=== PATIENT | male | born 1985 | race African-American/Black ===

== ENCOUNTER 2016-08-24 15:29 | Observation (INO) | payer OTHER, BC ==
[2016-08-24] MEDS ORDERED: Sodium Chloride 0.9% 10 ML Syringe FLUSH PRN (16:46)
--- NOTE | 2016-08-24 16:55 | EDM.PDOC ---
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, no cramps 2d ago, did little lifting then yesterday and today he was welding in a tight space and doing more lifting, had cramping in his hands, biceps and LEs with exertion, had cramping in bed in the R thigh last night, shower last night did not help, at pizza slice x 2 and chicken pieces x 2 for lunch, food did not help, drank 4 bottles water and 1 bottle gatorade this AM and had Sprite for lunch sweat "pouring off of me" at work today, his hand bandana was drenched from [place] no previous h/o cramps or muscle problems PMH neg meds none all NKA SH 1 ppd, no THC, occasional beer, no street drugs - Related Data Allergies Allergy/AdvReac Type Severity Reaction Status Date / Time No Known Allergies Allergy Verified 08/24/16 16:43 Home Meds: Home Meds NK [No Known Home Meds] 08/24/16 [History] ED ROS GENERAL - Review of Systems Review Of Systems: See Below Constitutional: Reports: No Symptoms HEENT: Reports: No Symptoms Respiratory: Reports: No Symptoms Cardiovascular: Reports: No Symptoms Endocrine: Reports: No Symptoms GI/Abdominal: Reports: No Symptoms : Reports: No Symptoms Musculoskeletal: Reports: Arm Pain, Hand Pain, Leg Pain, Muscle Stiffness, Other (muscle felt hard when it cramped) Skin: Reports: No Symptoms Neurological: Reports: No Symptoms Psychiatric: Reports: No Symptoms Hematologic/Lymphatic: Reports: No Symptoms Immunologic: Reports: No Symptoms ED EXAM, GENERAL - Physical Exam Exam: See Below Exam Limited By: No Limitations General Appearance: Alert, WD/WN, No Apparent Distress, Other (muscular, skin dry, no diaphoresis) Ears: Normal External Exam Nose: Normal Inspection, Normal Mucosa, No Blood Throat/Mouth: Normal Inspection, Normal Lips, Normal Teeth, Normal Gums, Normal Oropharynx, Normal Voice, No Airway Compromise Head: Atraumatic, Normocephalic Neck: Normal Inspection, Supple, Non-Tender, Full Range of Motion Respiratory/Chest: No Respiratory Distress, Lungs Clear, Normal Breath Sounds, No Accessory Muscle Use, Chest Non-Tender Cardiovascular: Normal Peripheral Pulses, No Edema, No Gallop, No Rub, Other ( regular, mild tachy, 2/6 RHONDA at LSB, quiet precordium) GI/Abdominal: Normal Bowel Sounds, Soft, Non-Tender, No Organomegaly, No Distention Back Exam: Normal Inspection Extremities: Normal Inspection, Normal Range of Motion, Non-Tender, No Pedal Edema, Other (no point tender, no spasm) Neurological: Alert, Oriented, CN II-XII Intact, Normal Cognition, No Motor/ Sensory Deficits Psychiatric: Normal Affect, Normal Mood Skin Exam: Warm, Dry, Intact, Normal Color, No Rash, Other (no tenting) Lymphatic: No Adenopathy Course - Vital Signs Last Recorded V/S: Last Vital Signs Temp 36.8 C 08/24/16 15:30 Pulse 105 H 08/24/16 15:30 Resp 18 08/24/16 15:30 BP 125/87 08/24/16 15:30 Pulse Ox 98 08/24/16 15:30 - Orders/Labs/Meds Orders: Active Orders 24 hr Category Date Time Status Sodium Chloride 0.9% [Normal Saline] 1,000 ml Med 08/24/16 17:00 Active IV ASDIRECTED Sodium Chloride 0.9% [Normal Saline] 1,000 ml Med 08/24/16 17:00 Active IV ASDIRECTED Sodium Chloride 0.9% [Saline Flush] Med 08/24/16 16:46 Active 10 ml FLUSH ASDIRECTED PRN Saline Lock Insert [OM.PC] Routine Oth 08/24/16 16:46 Ordered Medication Orders Sodium Chloride (Normal Saline) 1,000 mls @ 999 mls/hr IV ASDIRECTED MARGOT Last Admin: 08/24/16 17:13 Dose: 999 mls/hr Sodium Chloride (Normal Saline) 1,000 mls @ 999 mls/hr IV ASDIRECTED MARGOT Last Admin: 08/24/16 18:15 Dose: 999 mls/hr Sodium Chloride (Saline Flush) 10 ml FLUSH ASDIRECTED PRN PRN Reason: Keep Vein Open Last Admin: 08/24/16 17:10 Dose: 10 ml Labs: Laboratory Tests 08/24/16 08/24/16 08/24/16 Range/Units 17:10 17:10 17:10 WBC 8.2 (4.5-12.0) X10-3/uL RBC 6.20 H (4.30-5.75) x10(6)uL Hgb 18.0 H (11.5-15.5) g/dL Hct 54.2 H (30.0-51.3) % MCV 87.6 (80-96) fL MCH 29.0 (27.7-33.6) pg MCHC 33.1 (32.2-35.4) g/dL RDW 13.1 (11.5-15.5) % Plt Count 302 (125-369) X10(3)uL MPV 9.0 (7.4-10.4) fL Neut % (Auto) 64.1 (46-82) % Lymph % (Auto) 22.7 (13-37) % Jay % (Auto) 8.7 (4-12) % Eos % (Auto) 2 (1.0-5.0) % Baso % (Auto) 2 (0-2) % Neut # (Auto) 5.2 (1.6-8.3) # Lymph # (Auto) 1.9 (0.6-5.0) # Jay # (Auto) 0.7 (0.0-1.3) # Eos # (Auto) 0.2 (0.0-0.8) # Baso # (Auto) 0.2 (0.0-0.2) # Sodium 134 L (135-145) mmol/L Potassium 3.6 (3.5-5.3) mmol/L Chloride 96 L (100-110) mmol/L Carbon Dioxide 26 (23-29) mmol/L BUN 26 H (5-20) mg/dL Creatinine 1.6 H (0.6-1.3) mg/dL Est Cr Clr Drug Dosing 71.46 mL/min Estimated GFR (MDRD) > 60 (>60) BUN/Creatinine Ratio 16.3 (9-20) Glucose 96 (80-116) mg/dL Calcium 10.9 H (8.6-10.2) mg/dL Magnesium 2.4 (1.8-2.5) mg/dL Total Bilirubin 0.6 (0.1-1.3) mg/dL AST 76 H (5-27) IU/L ALT 33 H (14-26) IU/L Alkaline Phosphatase 117 H (56-112) IU/L Creatine Kinase 4672 H* (60-160) IU/L C-Reactive Protein < 0.5 (0.0-1.0) mg/dL Total Protein 9.4 H (6.0-8.0) g/dL Albumin 5.7 H (3.5-5.2) g/dL Globulin 3.7 g/dL Albumin/Globulin Ratio 1.5 Urine Color Yellow (YELLOW) Urine Appearance Clear (CLEAR) Urine pH 5.0 (5.0-6.5) Ur Specific [place] 1.025 (1.010-1.025) Urine Protein 30 H (NEGATIVE) mg/dL Urine Glucose (UA) Normal (NEGATIVE) mg/dL Urine Ketones 15 H (NEGATIVE) mg/dL Urine Occult Blood Moderate H (NEGATIVE) Urine Nitrite Negative (NEGATIVE) Urine Bilirubin Small H (NEGATIVE) Urine Urobilinogen 1 H (NEGATIVE) mg/dL Ur Leukocyte Esterase Negative (NEGATIVE) Urine RBC 0-5 (0) Urine WBC 0-5 (0) Ur Squamous Epith Cells Occasional (NS,R,O) Urine Bacteria Few H (NS) Hyaline Casts Moderate H (NS) Meds: Medications Generic Name Dose Route Start Last Admin Trade Name Freq PRN Reason Stop Dose Admin Sodium Chloride 1,000 mls @ 999 mls/hr 08/24/16 17:00 08/24/16 17:13 Normal Saline IV 999 mls/hr ASDIRECTED MARGOT Administration Sodium Chloride 1,000 mls @ 999 mls/hr 08/24/16 17:00 08/24/16 18:15 Normal Saline IV 999 mls/hr ASDIRECTED MARGOT Administration Sodium Chloride 10 ml 08/24/16 16:46 08/24/16 17:10 Saline Flush FLUSH 10 ml ASDIRECTED PRN Administration Keep Vein Open - Re-Assessments/Exams Free Text/Narrative Re-Assessment/Exam: 08/24/16 19:23 pt with acute rhabdo, need to admit for IVF as well as possibility of inc'd CPK prior to correction discussed, pt agrees to admission, suspect combination of physical exertion and heat and insufficient fluid intake all contributed to rhabdo Departure - Departure Time of Disposition: 19:20 Disposition: Admitted As Inpatient 66 Condition: Good Clinical Impression: Rhabdomyolysis, Acute renal failure due to rhabdomyolysis, Elevated LFTs, Heat exhaustion, Muscle spasm - Discharge Information Forms: ED Department Discharge - My Orders Last 24 Hours: My Active Orders 08/24/16 16:46 Sodium Chloride 0.9% [Saline Flush] 10 ml FLUSH ASDIRECTED PRN Saline Lock Insert [OM.PC] Routine 08/24/16 17:00 Sodium Chloride 0.9% [Normal Saline] 1,000 ml IV ASDIRECTED Sodium Chloride 0.9% [Normal Saline] 1,000 ml IV ASDIRECTED - Assessment/Plan Last 24 Hours: My Active Orders 08/24/16 16:46 Sodium Chloride 0.9% [Saline Flush] 10 ml FLUSH ASDIRECTED PRN Saline Lock Insert [OM.PC] Routine 08/24/16 17:00 Sodium Chloride 0.9% [Normal Saline] 1,000 ml IV ASDIRECTED Sodium Chloride 0.9% [Normal Saline] 1,000 ml IV ASDIRECTED
[2016-08-24] MEDS ORDERED: Sodium Chloride 0.9% 1,000 ML IV SCH ×2 (17:00)
[2016-08-24] MEDS ORDERED: Sodium Chloride 0.9% 2,000 ML IV SCH (19:30)
[2016-08-24] MEDS: Sodium Chloride 0.9% 1,000 ML IV SCH (21:37)
[2016-08-25] MEDS: Sodium Chloride 0.9% 1,000 ML IV SCH ×2 (01:37→05:39)
--- NOTE | 2016-08-25 07:58 | PCM.HP ---
H&P History of Present Illness - General Date of Service: 08/25/16 Admit Problem/Dx: Admission Diagnosis/Problem Admission Diagnosis/Problem Rhabdomyolysis Source of Information: Patient, RN History Limitations: Reports: No Limitations - History of Present Illness Initial Comments - Free Text/Narative: 30 -year-old AA male from [place] presented yesterday because of muscle cramps. Muscle cramps started 2 days ago insidious onset involving small hands muscles, thighs and biceps. Associated with a lot of sweating and fatigue despite trying to drink lots of fluids and eating pizza. Pain was moderate to severe to the point that he came to the emergency room. 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 Is previously healthy with no active medical problems .He denied headache fever or chills. Bilateral Leg Pain Score (Numeric/FACES): 3 - Related Data Allergies/Adverse Reactions: Allergies Allergy/AdvReac Type Severity Reaction Status Date / Time wasp Allergy Hives Uncoded 08/24/16 22:17 Home Medications: Home Meds NK [No Known Home Meds] 08/24/16 [History] Past Medical History HEENT History: Reports: None Cardiovascular History: Reports: None Respiratory History: Reports: None Gastrointestinal History: Reports: None Genitourinary History: Reports: None Other Musculoskeletal History: fracture 2004 Neurological History: Reports: Concussion Psychiatric History: Reports: Addiction, Other (See Below) Other Psychiatric History: smokes Endocrine/Metabolic History: Reports: None Hematologic History: Reports: None Immunologic History: Reports: None Oncologic (Cancer) History: Reports: None Dermatologic History: Reports: None - Infectious Disease History Infectious Disease History: Reports: Chicken Pox - Past Surgical History Head Surgeries/Procedures: Reports: None HEENT Surgical History: Reports: None Cardiovascular Surgical History: Reports: None Respiratory Surgical History: Reports: None GI Surgical History: Reports: None Male Surgical History: Reports: None Endocrine Surgical History: Reports: None Neurological Surgical History: Reports: None Musculoskeletal Surgical History: Reports: None Oncologic Surgical History: Reports: None Dermatological Surgical History: Reports: None Social & Family History - Family History Family Medical History: Unobtainable HEENT: Reports: Glaucoma Cardiac: Reports: High Cholesterol, Hypertension Respiratory: Reports: Asthma GI: Reports: None : Reports: None OBGYN: Reports: Musculoskeletal: Reports: Arthritis, Gout Neurological: Reports: Migraines Psychiatric: Reports: None Endocrine/Metabolic: Reports: Diabetes, type II Hematologic: Reports: None Immunologic: Reports: None Dermatologic: Reports: None Oncologic: Reports: Breast - Tobacco Use Smoking Status *Q: Current Every Day Smoker Years of Tobacco use: 9 Packs/Tins Daily: 1 Second Hand Smoke Exposure: Yes - Caffeine Use Caffeine Use: Reports: Energy Drinks, Soda - Alcohol Use Days Per Week of Alcohol Use: 2 Number of Drinks Per Day: 3 Total Drinks Per Week: 6 Date of Last Drink: 08/22/16 Time of Last Drink: 20:00 - Recreational Drug Use Recreational Drug Use: No H&P Review of Systems - Review of Systems: Review Of Systems: ROS reveals no pertinent complaints other than HPI. Exam - Exam Exam: See Below - Vital Signs Vital Signs: Last Vital Signs Temp 98 F 08/25/16 05:00 Pulse 74 08/25/16 05:00 Resp 16 08/25/16 05:00 BP 107/65 08/25/16 05:00 Pulse Ox 97 08/25/16 05:00 Weight: 74.888 kg - Exam General: Alert, Oriented, 4 HEENT: PERRLA, Hearing Intact, Mucosa Moist & [place], Nares Patent, Normal Nasal Septum, Posterior Pharynx Clear, Conjunctiva Clear, EOMI, EACs Clear, TMs Clear Neck: Supple, Trachea Midline, 2 Lungs: Clear to Auscultation, Normal Respiratory Effort Cardiovascular: Regular Rate, Regular Rhythm GI/Abdominal Exam: Normal Bowel Sounds, Soft, Non-Tender, No Organomegaly, No Distention, No Abnormal Bruit, No Mass, Pelvis Stable (Male) Exam: Deferred Rectal (Males) Exam: Deferred Back Exam: Normal Inspection, Full Range of Motion, NT Extremities: Normal Inspection, Normal Range of Motion, Non-Tender, No Pedal Edema, Normal Capillary Refill Skin: Warm, Dry, Intact Neurological: Cranial Nerves Intact, Reflexes Equal Bilateral Neuro Extensive - Mental Status: Alert, Oriented x3, Normal Mood/Affect, Normal Cognition Neuro Extensive - Motor, Sensory, Reflexes: CN II-XII Intact, Normal Gait, Normal Reflexes Psychiatric: Alert, Normal Affect, Normal Mood - Patient Data Result Diagrams: 08/24/16 17:10 08/24/16 17:10 *Q Meaningful Use (ADM) - VTE *Q VTE Criteria *Q: - Stroke *Q Stroke Criteria *Q: - AMI *Q AMI Criteria *Q: - Problem List (1) Acute renal failure due to rhabdomyolysis SNOMED Code(s): 84256571 ICD Code: N17.9 - ACUTE KIDNEY FAILURE, UNSPECIFIED; D21.9 - BENIGN NEOPLASM OF CONNECTIVE AND OTHER SOFT TISSUE, UNSP Status: Acute Current Visit: Yes (2) Heat exhaustion SNOMED Code(s): 09263864 ICD Code: T67.5XXA - HEAT EXHAUSTION, UNSPECIFIED, INITIAL ENCOUNTER Status : Acute Current Visit: Yes Qualifiers: Encounter type: initial encounter Qualified Code(s): T67.5XXA - Heat exhaustion, unspecified, initial encounter Problem List Initiated/Reviewed/Updated: Yes Orders Last 24hrs: Active Orders 24 hr Category Date Time Status BASIC METABOLIC PANEL,BMP [CHEM] Stat Lab 08/25/16 07:56 Ordered Medication Orders Sodium Chloride (Normal Saline) 1,000 mls @ 999 mls/hr IV ASDIRECTED [facility] Last Admin: 08/24/16 17:13 Dose: 999 mls/hr Sodium Chloride (Normal Saline) 1,000 mls @ 999 mls/hr IV ASDIRECTED [facility] Last Admin: 08/24/16 18:15 Dose: 999 mls/hr Sodium Chloride (Normal Saline) 1,000 mls @ 250 mls/hr IV ASDIRECTED [facility] Last Admin: 08/25/16 05:39 Dose: 250 mls/hr Infusion: 08/25/16 05:37 Dose: 250 mls/hr Admin: 08/25/16 01:37 Dose: 250 mls/hr Infusion: 08/25/16 01:37 Dose: 250 mls/hr Admin: 08/24/16 21:37 Dose: 250 mls/hr Sodium Chloride (Normal Saline) 2,000 mls @ 999 mls/hr IV ASDIRECTED [facility] Last Admin: 08/24/16 19:25 Dose: 999 mls/hr Sodium Chloride (Saline Flush) 10 ml FLUSH ASDIRECTED PRN PRN Reason: Keep Vein Open Last Admin: 08/24/16 17:10 Dose: 10 ml Assessment/Plan Comment:: The patient escort more than 5 L of normal saline he feels better this morning. I have repeated a basic metabolic profile and will discharge him home for a day of rest and can return to work tomorrow.
[2016-08-25 08:34] VITALS: BP 118/78
== END 2016-08-25 10:00 | disposition home or self-care (01) ==
LOC: FB.ED 15:29 → FB.MS 19:28
PROVIDERS: ADMIT Emergency Medicine; ATTEND Family Medicine
DX: N17.9 Acute kidney failure, unspecified (principal); D21.9 Benign neoplasm of connective and other soft tissue, unspecified; T67.5XXA Heat exhaustion, unspecified, initial encounter; Z91.038 Other insect allergy status; F17.210 Nicotine dependence, cigarettes, uncomplicated
CPT/HCPCS: 36415; 80048; 80053; 81001; 82550; 83735; 85025; 86140; 96360; 96361; 99284; G0378; J7040; J7050